=== PATIENT | male | born 1985 | race Caucasian/White ===

== ENCOUNTER 2024-12-29 20:49 | Emergency (ER) | payer BC, OTHER ==
[~2024-12-29] VITALS: Ht 177.8 cm; Wt 82.0 kg
--- NOTE | 2024-12-29 21:12 | ED.PDOC ---
SOB-HPI HPI Comments 39 y.o male presents to the ED via EMS for a chief complaint of SOB that p resented today while getting inside his car. Patient reports recent flu like symptoms for the past 1-2 days that include congestion and a cough. EMS reports patient had wheezing noted bilaterally and stable vital signs with SPO2 at 100% on room air. EMS gave a total of 5mg Albuterol and 0.5mg Atrovent for comfort measures in which patient noted some relief. Patient remains saturating at 100% RA. Patient is actively breathing heavy at time of evaluation. Chief Complaint: Shortness of Breath Time Seen by MD: 20:55 Reviewed notes: Nurses Notes, Front Loader Residential Driver Notes, Medications, Allergies Information Source: Patient, Emergency Med Personnel Mode of Arrival: EMS Severity: Moderate Timing: Hours Duration: Since onset Context: At Rest PE Risk Factors: None History of: None Modifying Factors: Nothing Associated Signs and Symptoms: Cough, Nasal Congestion If cough with SOB: Productive Past Medical History PAST MEDICAL HISTORY: Denies Surgical History: Denies all surgeries Family History Family History: Reviewed,noncontributory to illness Social History Smoker: Non-Smoker Alcohol: Denies ETOH Use Drugs: Denies Drug Use Lives In: Home Constitutional: denies: chills, diaphoresis, fatigue, fever, malaise, sweats, weakness, others EENTM: reports: nose congestion; denies: blurred vision, double vision, ear bleeding, ear discharge, ear drainage, ear pain, ear ringing, eye pain, eye redness, hearing loss, mouth pain, mouth swelling, nasal discharge, nose bleeding, nose pain, photophobia, tearing, throat pain, throat swelling, voice changes, others Respiratory: reports: cough, SOB at rest, shortness of breath, SOB with excertion; denies: hemoptysis, orthopnea, stridor, wheezing, others Cardiovascular: denies: chest pain, dizzy spells, diaphoresis, Dyspnea on exertion, edema, irregular heart beat, left arm pain, lightheadedness, palpitations, PND, syncope, others Gastrointestinal: denies: abdomen distended, abdominal pain, blood streaked bowels, constipated, diarrhea, dysphagia, difficulty swallowing, hematemesis, melena, nausea, poor appetite, poor fluid intake, rectal bleeding, rectal pain, vomiting, others Genitourinary: denies: burning, dysuria, flank pain, frequency, hematuria, incontinence, penile discharge, penile sore, pain, testicle pain, testicle swelling, urgency, others Neurological: denies: dizziness, fainting, headache, left sided numbness, left sided weakness, numbness, paresthesia, pre-existing deficit, right sided numbness, right sided weakness, seizure, speech problems, tingling, tremors, weakness, others Musculoskeletal: denies: back pain, gout, joint pain, joint swelling, muscle pain, muscle stiffness, neck pain, others Integumetry: denies: bruises, change in color, change in hair/nails, dryness, laceration, lesions, lumps, rash, wounds, others Allergic/Immunocompromised: denies: Difficulty Healing, Frequent Infections, Hives, Itching, others Hematologic/Lymphatic: denies: anemia, blood clots, easy bleeding, easy bruising, swollen glands, others Endocrine: denies: excessive hunger, excessive sweating, excessive thirst, excessive urination, flushing, intolerance to cold, intolerance to heat, unexplained weight gain, unexplained weight loss, others Psychiatric: denies: anxiety, bipolar disorder, depression, hopeless, panic disorder, schizophrenia, sleepless, suicidal, others All Other Systems: Reviewed and Negative Physical Exam General Appearance: Moderate Distress (Moderate distress due to shortness of breath concerns. Patient was satting at 99% on room air.), Normal HEENT: Normal ENT Inspection, Pharynx Normal, TMs Normal Neck: Full Range of Motion, Non-Tender, Normal, Normal Inspection Respiratory: Other (Patient was breathing heavily at time of evaluation. Auscultation bilateral dow revealed some patchy rhonchi in right middle lobe as left upper lobe. No accessory muscle use. No signs of respiratory distress.) Cardiovascular: No Edema, No JVD, No Murmur, No Gallop, Normal Peripheral Pulses, Regular Rate/Rhythm Breast Exam: Deferred Gastrointestinal: No Organomegaly, Non Tender, No Pulsatile Mass, Normal Bowel Sounds, Soft Genitalia: Deferred Pelvic: Deferred Rectal: Deferred Extremities: No calf tenderness, Normal capillary refill, Normal inspection, Normal range of motion, Non-tender, No pedal edema Musculoskeletal : Apperance: Normal Neurologic: Alert, No Motor Deficits, Normal Affect, Normal Mood, No Sensory Deficits Cerebellar Function: Normal Reflexes: Normal Skin: Dry, Normal Color, Warm Lymphatic: No Adenopathy Was a procedure done? Was a procedure done?: No Differential Dx Differential Diagnosis: Asthma, Bronchitis, Hyperventilation, Pneumonia, Pulmonary Embolism, Respiratory Distress, Sinusitis, Allergic Rhinitis, URI X-Ray, Labs, Meds, VS Vital Signs Date Time Temp Pulse Resp B/P (MAP) Pulse Ox O2 Delivery O2 Flow Rate FiO2 12/29/24 23:00 98.7 90 18 112/73 (86) 98 98.7 12/29/24 22:00 Room Air* 0 21 12/29/24 22:00 97.8 98 18 116/67 (83) 98 97.8 12/29/24 21:02 40 Room Air* 0 21 12/29/24 20:55 98.5 109 40 120/68 (85) 100 12/29/24 20:49 113 Lab Test 12/29/24 21:03 Range/Units White Blood Count 14.1 H 4.4-10.8 10^3/uL Red Blood Count 4.76 4.5-5.90 10^6/uL Hemoglobin 14.4 13.5-17.5 g/dL Hematocrit 41.9 41.0-53.0 % Mean Corpuscular Volume 88.2 80.0-100.0 fL Mean Corpuscular Hemoglobin 30.2 28.0-32.0 pg Mean Corpuscular Hemoglobin Concent 34.3 32.0-36.0 g/dL Red Cell Distribution Width 12.6 11.8-14.3 % Platelet Count 178 140-450 10^3/uL Mean Platelet Volume 10.7 6.9-10.8 fL Neutrophils (%) (Auto) 72.9 37.0-80.0 % Lymphocytes (%) (Auto) 18.4 10.0-50.0 % Monocytes (%) (Auto) 7.5 0.0-12.0 % Eosinophils (%) (Auto) 0.9 0.0-7.0 % Basophils (%) (Auto) 0.3 0.0-2.0 % Neutrophils # (Auto) 10.3 H 1.6-8.6 10 ^3/uL Lymphocytes # (Auto) 2.6 0.4-5.4 10 ^3/uL Monocytes # (Auto) 1.1 0-1.3 10 ^3/uL Eosinophils # (Auto) 0.1 0-0.8 10 ^3/uL Basophils # (Auto) 0 0-0.2 10 ^3/uL Nucleated Red Blood Cells 0.1 % D-Dimer, Quantitative 1.85 H 0.0-0.49 mg/L FEU Sodium Level 137 136-145 mmol/L Potassium Level 3.3 L 3.5-5.1 mmol/L Chloride Level 104 98-107 mmol/L Carbon Dioxide Level 21 20-31 mmol/L Anion Gap 12 5-15 Blood Urea Nitrogen 14 9-23 mg/dL Creatinine 1.37 H 0.700-1.30 mg/dL Glomerular Filtration Rate Calc 66 >90 mL/min BUN/Creatinine Ratio 10.2 10.0-20.0 Serum Glucose 129 H 74-106 mg/dL Calcium Level 9.3 8.7-10.4 mg/dL B-Type Natriuretic Peptide 29.62 0-100 pg/mL Current Medications Medications (Trade) Dose Ordered Sig/Kevin Route Start Time Stop Time Status Last Admin Dexamethasone Sodium Phosphate (Decadron Injection) 10 mg ONCE ONCE IM 12/29/24 21:30 12/29/24 21:31 DC 12/29/24 21:36 Ketorolac Tromethamine (Toradol Injection) 30 mg ONCE ONCE IV 12/29/24 22:15 12/29/24 22:16 DC 12/29/24 22:23 Azithromycin (Zithromax Tablet) 500 mg ONCE ONCE PO 12/29/24 22:45 12/29/24 22:46 DC 12/29/24 23:00 X-Ray, Labs, Meds, VS Comment Patient had good relief of symptoms status post medication dispensed in the ED. All studies performed the ED were evaluated by me personally. EKG revealed a sinus tachycardia with a rate of 113. Multiform ventricular premature complexes noted with borderline T-wave abnormalities. VA interval of 160 and a QT interval of 343. Serum laboratories were remarkable only for a elevated D- dimer. CT angio chest ruled out any pulmonary emboli. Chest x-ray confirmed a consolidation and probable pneumonia. Patient was given 1st dose of antibiotics and will be sent home with prescriptions for antibiotics as well as supportive medication. Time of 1ST Reevaluation: 23:58 Reevaluation 1ST: Improved Consultation: PCP Patient Education/Counseling: Diagnosis, Treatment, Prognosis Family Education/Counseling: Diagnosis, Treatment, No Family Present Departure 1 Departure Time of Disposition: 23:59 Impression: Primary Impression: Pneumonia Disposition: HOME / SELF CARE / HOMELESS Condition: Stable Additional Instructions: Advised patient utilize antibiotics as directed until completion as well as additional medication on an as-needed basis for symptomatic relief. Patient should practice good hydration and healthy nutrition throughout illness event. e-Prescriptions Benzonatate (Benzonatate) 100 Mg Cap 1 CAP PO TID, #20 CAP Prov: MARIAA MENDEZ PAC 12/30/24 Albuterol Sulfate (Albuterol Sulfate Hfa) 108 Mcg/Act Aer 108 MCG IN Q4HP PRN, #1 AER Prov: MARIAA MENDEZ PAC 12/30/24 Azithromycin (ZITHROMAX TABLET) 250 Mg Tb 250 MG PO DAILY for 4 Days, #4 TAB Prov: MARIAA MENDEZ PAC 12/30/24 Discharged With: Self, Spouse Critical Care Note Critical Care Time?: No Stability Stability form required: No I personally scribed for MARIAA MENDEZ PAC ([email or web address]) on 12/29/24 at 21:12. Electro nically submitted by Licha Cool ([facility]). MARIAA MENDEZ PAC Dec 29, 2024 21:12
[2024-12-29] MEDS: DexAMETHasone SOD PHOS 10MG/1ML VIAL INJ IM ONE (21:36)
[2024-12-29 21:41] LABS: Basophils # (auto) 0 10 ^3/uL (0-0.2); Basophils % (auto) 0.3 % (0.0-2.0); Eosinophils # (auto) 0.1 10 ^3/uL (0-0.8); Eosinophils % (auto) 0.9 % (0.0-7.0); Hematocrit 41.9 % (41.0-53.0); Hemoglobin 14.4 g/dL (13.5-17.5); Lymphocytes # (auto) 2.6 10 ^3/uL (0.4-5.4); Lymphocytes % (auto) 18.4 % (10.0-50.0); Mean Corpuscular Hemoglobin 30.2 pg (28.0-32.0); Mean Corpuscular Hgb Conc. 34.3 g/dL (32.0-36.0); Mean Corpuscular Volume 88.2 fL (80.0-100.0); Monocytes # (auto) 1.1 10 ^3/uL (0-1.3); Monocytes % (auto) 7.5 % (0.0-12.0); Neutrophils # (auto) 10.3 10 ^3/uL (1.6-8.6); Neutrophils % (auto) 72.9 % (37.0-80.0); Nucleated Red Blood Cells % 0.1 %; Platelet Count (auto) 178 10^3/uL (140-450); Red Blood Cells 4.76 10^6/uL (4.5-5.90); Red Cell Distribution Width 12.6 % (11.8-14.3); White Blood Cell 14.1 10^3/uL (4.4-10.8)
--- NOTE | 2024-12-29 21:46 | DVH ---
EXAMINATION: AP portable chest radiograph CLINICAL HISTORY: SOB COMPARISON: None FINDINGS: Right lower thorax and costophrenic angle partially excluded. Patient is rotated to the right. Central interstitial prominence. No lobar consolidation identified. No definite pleural effusion or p neumothorax. The cardiomediastinal silhouette appears within normal limits given technique. IMPRESSION: Limited study. Central interstitial prominence is relatively nonspecific but can be seen with edema, reactive airway changes as well as atypical / viral infection. Please correlate clinically.
[2024-12-29 21:55] LABS: Chloride 104 mmol/L (98-107); Sodium 137 mmol/L (136-145)
[2024-12-29 21:56] LABS: Anion Gap 12 (5-15); Calcium 9.3 mg/dL (8.7-10.4); Carbon Dioxide 21 mmol/L (20-31)
[2024-12-29 22:01] LABS: BUN/Creatinine Ratio 10.2 (10.0-20.0); Blood Urea Nitrogen 14 mg/dL (9-23)
[2024-12-29 22:02] LABS: Glucose 129 mg/dL (74-106); Potassium 3.3 mmol/L (3.5-5.1)
[2024-12-29] MEDS: KETOROLAC TROMETH 30 MG/ML 1ML VIAL IV ONE (22:23)
[2024-12-29] MEDS: AZITHROMYCIN 250 MG TAB PO ONE (23:00)
[2024-12-29] MEDS: IOHEXOL 350 MG/ML 100ML IJ ONE (23:03)
--- NOTE | 2024-12-29 23:43 | DVH ---
CTA Chest with intravenous contrast INDICATION: Elevated D-dimer Comparison Study: None available at time of dictation. TECHNIQUE: Multidetector spiral CTA of the chest was performed of the chest with intravenous contrast . PULMONARY ANGIOGRAPHY PROTOCOL was utilized using a bolus-tracking technique centered on the main p ulmonary artery. Axial, coronal and sagittal multiplanar and MIP reformats were performed. Radiation Dose : 1. Chest: CTDI volume is 25 mGy. Dose-length product is 1133 mGy*cm The dose indicators for CT are the volume Computed Tomography (CT) Dose Index (CTDIvol) and the Dose Length Product (DLP), and are measured in units of mGy and mGy-cm, respectively. These indicators are not patient dose, but values generated from the CT scanner acquisition factors. The report includes radiation exposure data for exposures received during this examination. Findings: Pulmonary artery: No evidence of pulmonary embolism seen to the level of the proximal segmental arteries. No dilation o f the pulmonary trunk. No right heart strain Lower neck: Absent Left thyroid lobe. Lungs: Within normal limits. Heart/Vascular Structures: Within normal limits. Lymph Nodes: No adenopathy Pleura: Within normal limits. Musculoskeletal: Chronic appearing deformity of the right clavicle. Body wall: Within normal limits. Upper abdomen: Cholelithiasis IMPRESSION: No pulmonary embolism. No aortic dissection or aneurysm. Cyst.
[2024-12-30] VITALS: BP 110/60; PULSE 88; RESP 18; TEMP 98.7; O2SAT 96
[2024-12-30] MEDS ORDERED: AZIT-185 PO (00:01)
[2024-12-30] MEDS ORDERED: BENZ100C97 PO (00:01)
[2024-12-30] MEDS ORDERED: ALBU108A5 IN (00:01)
--- NOTE | 2024-12-31 12:59 | ECG ---
[facility] Test Date: 2024-12-29 Test Time: 20:49:31 Pat Name: TATI APONTE Department: ER Room: Gender: M Gold Marker: : 1985 Requested By: MARIAA MENDEZ Order Number: [id number] Reading MD: Kris Cahn Measurements Intervals [place] Rate: 113 P: 46 ID: [id number] QRS: 4 QRSD: 87 T: -72 QT: 343 QTc: 471 Interpretive Statements Sinus tachycardia Multiform ventricular premature complexes Borderline T abnormalities, inferior leads Electronically Signed On 12-31-2024 21:11:22 PST by Kris Chan Please click the below link to view image of tracing.
== END 2024-12-30 00:20 | disposition home or self-care (01) ==
LOC: EDBD 20:49 → ER 20:49
DX: J18.9 Pneumonia, unspecified organism (principal)
CPT/HCPCS: 36415; 71045; 71275; 80048; 83880; 85025; 85379; 93005; 96372; 96374; 99285; J1100; J1885; Q9967